=== PATIENT | male | born 1965 | race Caucasian/White ===

== ENCOUNTER 2024-07-22 19:35 | Emergency (ER) | payer BC, SELFPAY ==
[2024-07-22 19:42] VITALS: BP 118/59
[2024-07-22 19:58] LABS: % Basophils 0.7 % (0-2); % Eosinophils 1.3 % (0-6); % Lymphocytes 28.4 % (20.5-51.1); % Monocytes 5.9 % (1.7-9.3); % Neutrophils 62.7 % (42.2-75.2); Absolute Basophils 0.1 10^3/uL (0-0.2); Absolute Eosinophils 0.1 10^3/uL (0-0.7); Absolute Immature Granulocytes 0.1 10^3/uL (0-0.05); Absolute Lymphocytes 2.4 10^3/uL (1.2-3.4); Absolute Monocytes 0.5 10^3/uL (0.1-0.6); Absolute Neutrophils 5.3 10^3/uL (1.4-6.5); Hematocrit 46.4 % (39.0-52.0); Hemoglobin 16.2 g/dL (13.0-18.0); Mean Corp Hgb Conc. 34.9 g/dL (33.0-37.0); Mean Corpuscular Hgb 28.7 pg (27.0-31.0); Mean Corpuscular Volume 82.3 fL (80.0-94.0); Mean Platelet Volume 9.5 fL (7.4-10.4); Nucleated Red Blood Cells % 0 % (-); Platelet Count 162 10^3/uL (130-400); Red Blood Cell Count 5.64 10^6/uL (4.70-6.10); Red Cell Dist. Width 11.9 % (11.5-14.5); White Blood Cell Count 8.4 10^3/uL (4.8-10.8)
[2024-07-22 20:14] LABS: ALT (SGPT) 68 U/L (0-50); AST (SGOT) 32 U/L (17-59); Albumin 4.7 g/dl (3.5-5.0); Alkaline Phosphatase 78 U/L (38-126); Blood Urea Nitrogen 22 mg/dl (9-20); Calcium 9.7 mg/dl (8.4-10.2); Carbon Dioxide 24 mmol/L (22-30); Chloride 103 mmol/L (98-107); Glucose 220 mg/dl (70-99); Lipase 201 U/L (23-300); Potassium 4.2 mmol/L (3.5-5.1); Sodium 141 mmol/L (135-145); Total Bilirubin 0.8 mg/dl (0.2-1.3); Total Protein 6.9 g/dl (6.3-8.2); eGFR > 60.00
--- NOTE | 2024-07-22 22:25 | ED.GENMED ---
History of Present Illness
<Jerry Mayfield MD, Resident - Last Filed: 07/23/24 00:38>
General
Chief Complaint: Abdominal Pain
Source: patient
Time Seen by Provider: 07/22/24 22:01
History of Present Illness
History of Present Illness:
Patient is a 59-year-old male s/p prostatectomy and umbilical hernia repair, presenting with dull right lower back/flank pain starting from almost 3 weeks ago. Pain is constant. Does not radiate. Patient mentions he visited his orthopedist and was
prescribed prednisone for a week (discontinued yesterday) which did not improve pain. Also, has taken meloxicam without any improvement. Patient has noticed swelling in right groin area, especially when standing up. Bowel movements is same as
before without any constipation or diarrhea. Has not noticed any blood in stools. Denies abdominal pain, nausea/vomiting. Denies fever. No urinary symptoms.
Past History
<Jerry Mayfield MD, Resident - Last Filed: 07/23/24 00:38>
Past History
ED Past Medical History: Cancer (Melanoma) and Other (Prediabetic on metformin)
ED Past Surgical History: Urological (Prostatectomy)
Social History
Tobacco: Smoker (1 cigar every day)
Alcohol: Occasional
Review of Systems
<Jerry Mayfield MD, Resident - Last Filed: 07/23/24 00:38>
Review of Systems
Allergies reviewed?: Yes
All Other Systems: ROS reviewed and negative except as documented in HPI and ROS
Phy Exam
<Jerry Mayfield MD, Resident - Last Filed: 07/23/24 00:38>
General Physical Exam
General Presentation: no apparent distress
Cardiovascular Exam
Cardiovascular Exam: regular rate/rhythm, no edema and no JVD
Pulmonary Exam
Pulmonary Exam: lungs clear and no respiratory distress
Gastrointestinal Exam
Gastrointestinal Exam: normal bowel sounds, non tender, soft, non distended (Mild distention) and other (No guarding)
Genitourinary Exam Male
Exam Male: no CVAT, normal external genitalia, no testicular swelling and other (reducible right inguinal bulge)
Musculoskeletal Exam
Musculoskeletal Exam: full ROM and no edema
Skin Exam
Skin Exam: normal color and no rash
Course
<Jerry Mayfeild MD, Resident - Last Filed: 07/23/24 00:38>
Orders/Labs/Results
Orders:
Orders
07/22/24 19:53
CMP [Comprehensive Metabolic Panel] Urgent
Complete Blood Count/With Diff Urgent
Lipase Urgent
07/22/24 22:49
Iohexol [Omnipaque] See Protocol PO NOW STA
07/23/24 01:00
CT Abd/pel W Iv And Oral Contr Urgent
Reason For Exam: right inguinal hernia
Abnormal Lab Results
07/22/24
19:53
Abs Immat Gran (auto) 0.1 H 10^3/uL
(0-0.05)
Immature Gran % 1.0 H %
(0-0.5)
BUN 22 H mg/dl
(9-20)
Glucose 220 H mg/dl
(70-99)
ALT 68 H U/L
(0-50)
07/22/24 19:53
07/22/24 19:53
Vital Signs
Initial and Last Documented VS:
Initial Vital Signs
Temp Pulse Resp BP Pulse Ox
98 F 80 16 118/59 96
07/22/24 19:42 07/22/24 19:42 07/22/24 19:42 07/22/24 19:42 07/22/24 19:42
Last Documented Vital Signs
Temp Pulse Resp BP Pulse Ox
98 F 83 16 170/74 97
07/22/24 19:42 07/22/24 22:34 07/22/24 22:34 07/22/24 22:34 07/22/24 22:34
<Raegan Ramírez MD - Last Filed: 07/23/24 01:41>
Orders/Labs/Results
Orders:
Orders
07/22/24 19:53
CMP [Comprehensive Metabolic Panel] Urgent
Complete Blood Count/With Diff Urgent
Lipase Urgent
07/22/24 22:49
Iohexol [Omnipaque] See Protocol PO NOW STA
07/23/24 01:00
CT Abd/pel W Iv And Oral Contr Urgent
Reason For Exam: right inguinal hernia
Abnormal Lab Results
07/22/24
19:53
Abs Immat Gran (auto) 0.1 H 10^3/uL
(0-0.05)
Immature Gran % 1.0 H %
(0-0.5)
BUN 22 H mg/dl
(9-20)
Glucose 220 H mg/dl
(70-99)
ALT 68 H U/L
(0-50)
07/22/24 19:53
07/22/24 19:53
Vital Signs
Initial and Last Documented VS:
Initial Vital Signs
Temp Pulse Resp BP Pulse Ox
98 F 80 16 118/59 96
07/22/24 19:42 07/22/24 19:42 07/22/24 19:42 07/22/24 19:42 07/22/24 19:42
Last Documented Vital Signs
Temp Pulse Resp BP Pulse Ox
98 F 83 16 170/74 97
07/22/24 19:42 07/22/24 22:34 07/22/24 22:34 07/22/24 22:34 07/22/24 22:34
<Jerry Mayfield MD, Resident - Last Filed: 07/23/24 00:38>
MDM/Problems Addressed
Differential Diagnosis Includes:
non-complicated reducible right inguinal hernia (most likely), strangulated right inguinal hernia (given absence of nausea/ vomiting, regular bowel movements and hernia being reducible this is less likely),
hydrocele, varicocele, groin abscess (unlikely based on clinical presentation)
MDM/Problems Addressed:
Abd/pel CT w IV and oral contrast ordered to evaluate any possible abdominal wall defects/ pathologies.
Chronic conditions affecting care:
None
<Jerry Mayfield MD, Resident - Last Filed: 07/23/24 00:38>
*Critical Care Note
Total Time (30-74mins, 75-104mins- exclusive of procedures): 30
ED Attending Note
<Jerry Mayfield MD, Resident - Last Filed: 07/23/24 00:38>
-
Portions of this chart may have been created with voice recognition software.� Occasional wrong word or��sound alike� substitutions may have occurred due to the inherent limitations of voice recognition software.
<Raegan Ramírez MD - Last Filed: 07/23/24 01:41>
ED Attending Note
Patient seen and examined by attending physician: Yes
I performed a history and physical exam of patient and discussed management with resident, I reviewed resident's note and agree with documented findings and plan of care.: Yes
ED Attending Note:
I have seen and evaluated the patient with a [id number] encounter. I have spoken to the resident and involved in the medical history, the physical exam, medical decision making.
Evaluation and management service: agree unless noted differently below.
Results interpretation: agree unless noted differently below.
Patient is a 59-year-old male with history of prior hernia s/p repair presenting to the emergency department with a bulge. Patient states that for the past few weeks has been having chronic back pain that he sees before. He does state him on a
prednisone taper as well as NSAIDs. However he noticed that he had a bulge a few days ago in his right lower quadrant. It is worse when he stands. It is easily reducible. He denies any changes in his bowel movements. No scrotal pain. No skin
changes. No tenderness. He called his PCP who was worried that he might be incarcerated and told him to come here for further evaluation.
GENERAL: in no acute distress
HEENT: normocephalic, extraocular movements intact, moist oral mucosa
NECK: normal inspection
RESPIRATORY: no respiratory distress, clear to auscultation bilaterally
CARDIOVASCULAR: regular rate and rhythm
ABDOMEN/: soft, non-distended, non-tender to palpation, no rebound or guarding, about a 5 inch bulge in the right lower quadrant upon standing that is not noticeable when he is lying flat, reducible
EXTREMITIES: non-tender, no edema/swelling
NEUROLOGIC: awake and alert, moves all extremities
SKIN: warm
Patient is a 59-year-old male with prior hernia status post repair at [facility] presenting to the emergency department with a bulge that he noticed a few days ago. Vitals unremarkable and exam does show a large bulge in the right lower quadrant
specially upon standing. There are no overlying skin changes in the abdomen is not tender. It is likely a hernia. Does not seem consistent with an incarcerated hernia. However given the size of the hernia we will proceed with CT scan for further
evaluation and to help with outpatient surgical follow-up.
CT scan does not visualize hernia that this was supine which it is reducible during that time. This is reassuring as there is no signs of strangulation or incarceration. Strict return precautions given. Patient will follow-up with his surgeon at
[facility].
Discharge Plan
Departure
Patient Disposition: Home (Routine Discharge)
Date of Disposition: 07/23/24
Time of Disposition: 01:40
Patient with high blood pressure during this ER visit?: No
Discharge Problem:
Hernia
Instructions: Abdominal Hernia
Referrals:
To Ramsay MD [Family Provider] -
Interventions
Interventions:
*Risk Screen - Suicide Last Done: 07/22/24 19:42
*General Assessment Last Done: 07/22/24 19:42
*Neglect/Abuse Screening Last Done: 07/22/24 19:42
ED- Fall Risk Assessment Last Done: 07/22/24 22:34
*ED COVID-19 Vaccine History Last Done: 07/22/24 19:42
UM-Ygbfmc-[id number] Assessment Last Done: 07/22/24 22:34
Discharge Date and Time
Print Language: GUINEAN
[2024-07-22 22:34] VITALS: BP 170/74
[2024-07-22] MEDS: OMNIPAQUE 50 ML PO (22:58)
[2024-07-22 23:04] VITALS: BMI 30.2
--- NOTE | 2024-07-22 23:59 | EDRN ---
patient is tolerating oral contrast, finished first cup and moved onto second.
== END 2024-07-23 02:29 | disposition home or self-care (01) ==
LOC: EMR 19:35
PROVIDERS: Emergency Medicine; EMERGENCY PHYSICIAN Student in an Organized Health Care Education/Training Program; FAMILY PHYSICIAN Internal Medicine
DX: K46.9 Unspecified abdominal hernia without obstruction or gangrene (principal); F17.290 Nicotine dependence, other tobacco product, uncomplicated; Z90.79 Acquired absence of other genital organ(s); Z85.820 Personal history of malignant melanoma of skin; R73.03 Prediabetes; Z79.84 Long term (current) use of oral hypoglycemic drugs
CPT/HCPCS: 99284; 74177; 80053; 83690; 85025; Q9967